=== PATIENT | male | born 1960 | race Caucasian/White ===

== ENCOUNTER 2025-03-21 13:41 | Emergency (ER) | payer OTHER ==
[~2025-03-21] VITALS: Ht 170.2 cm; Wt 90.7 kg
--- NOTE | 2025-03-21 13:46 | ERN ---
ED Note History of Present Illness Stated Complaint: CHRONIC BACK PAIN Chief Complaint: Back Pain-No Injury Time Seen by MD: 13:43 Dictation: PATIENT IS A 64-YEAR-OLD MALE COMING IN TODAY WITH LEFT LATERAL LUMBAR SACRAL PAIN HE HAS HAD OFF AND ON FOR THE LAST 4-5 DAYS. NO FEVER NO CHILLS NO CHANGE IN URINATION. HE STATES HE HAS A HISTORY QT OF CHRONIC BACK PAIN AND HAD A LUMBAR FUSION 7-8 YEARS AGO. HE HAS TAKEN NOTHING PRIOR TO ARRIVAL FOR PAIN. HE DENIES ANY TRAUMA. NO CHANGE IN BOWEL OR BLADDER FUNCTION NO SADDLE PA RESTHESIA NOT SEEN HIS PRIMARY CARE DOCTOR HAS A AN APPOINTMENT TOMORROW. Allergies: Coded Allergies: No Known Allergies (Unverified Allergy, Unknown, 03/21/25) Home Meds Active Scripts Cyclobenzaprine HCl (Flexeril) 10 Mg Tab, 1 TAB PO TID for muscle spasms for 10 Days, #30 TAB 0 Refills Prov:TIANNA LOPEZP 03/21/25 Ibuprofen (Ibuprofen 800 mg Tab) 800 Mg Tab, 800 MG PO Q8H PRN for fever or pain, #30 TAB 0 Refills Prov:TIANNA LOPEZ COUNT TEAM CLERK 03/21/25 Methylprednisolone (Medrol) 4 Mg Tab.ds.pk, 1 TAB PO AD for 6 Days, #21 TAB 0 Refills 6 on day 1 then reduce by one tablet daily until gone Prov:TIANNA LOPEZ COUNT TEAM CLERK 03/21/25 Past Medical History RN Note Reviewed/Agreed w/PFSH: Yes Review of System Dictation CONSTITUTIONAL: NEGATIVE EXCEPT FOR HPI HEAD/FACE: NEGATIVE EXCEPT FOR HPI EENT: NEGATIVE EXCEPT FOR HPI RESPIRATORY: NEGATIVE EXCEPT FOR HPI GASTROINTESTINAL/ABDOMINAL: NEGATIVE EXCEPT FOR HPI GENITOURINARY: NEGATIVE EXCEPT FOR HPI MUSCULOSKELETAL: NEGATIVE EXCEPT FOR HPI LEFT LUMBAR PAIN INTEGUMENTARY: NEGATIVE EXCEPT FOR HPI NEUROLOGICAL/PSYCH: NEGATIVE EXCEPT FOR HPI HEMATOLOGIC/LYMPHATIC: NEGATIVE EXCEPT FOR HPI ALL SYSTEMS NEGATIVE, EXCEPT NOTED ABOVE. 13 POINT REVIEW OF SYSTEMS ASSESSED AND ALL NEGATIVE EXCEPT FOR ABOVE. Initial Vital Sign VS Vital Signs Date Time Temp Pulse Resp B/P (MAP) Pulse Ox O2 Delivery O2 Flow Rate FiO2 03/21/25 13:43 98.1 86 16 156/80 98 Room Air 0 Physical Exam Dictation VITAL SIGNS REVIEWED GENERAL APPEARANCE: ALERT, ORIENTED X 3, MODERATE ACUTE DISTRESS, WELL DEVELOPED, NOURISHED. OBESE HEAD AND FACE: NON-TRAUMATIC. EYES: PERRL, PINK CONJUNCTIVAS, EYELID NO TRAUMA, ANTERIOR CHAMBER WITH ARCUS S ENILIS. EARS: PINNAS INTACT AND NO SIGNS OF TRAUMA OR ERYTHEMA EAR CANALS CLEAR AND NO DISCHARGE TM NO ERYTHEMA NOSE: NO DISCHARGE, NO BLEEDING. OROPHARYNX: MOUTH NORMAL, TONGUE PINK, PHARYNX CLEAR,NO ERYTHEMA, TONSILS NO EXUDATES, NO ABSCESSES NOTED, MUCOUS MEMBRANE MOIST NECK: SUPPLE, NON-TENDER, NO THYROMEGALY, NO MASSES, NO JVD, NO BRUITS BREAST:DEFERRED CHEST:NO TENDERNESS, NO CREPITUS, NO PARADOXICAL MOVEMENT, NO RETRACTIONS LUNGS:CLEAR, WELL-VENTILATED, SYMMETRIC, NO RALES, NO WHEEZING, NO RHONCHI, NO STRIDOR, GOOD BREATH SOUNDS BILATERALLY HEART: REGULAR RATE, REGULAR RHYTHM, NO MURMUR, NO GALLOPS VASCULAR: NO PERIPHERAL EDEMA, ABDOMEN: SOFT, POSITIVE BOWEL SOUNDS, NONDISTENDED, NO GUARDING, NONTENDER, NO REBOUND, NO MASSES NO HEPATOMEGALY, NO SPLENOMEGALY, NO THOPMSON'S SIGN, NO HERNIAS. RECTAL: DEFERRED GENITAL: DEFERRED NEUROLOGICAL: NORMAL SPEECH, MOTOR FUNCTION INTACT, SENSORY FUNCTION INTACT MUSCULOSKELETAL: NECK NONTENDER, FULL RANGE OF MOTION, DIFFUSE LEFT LUMBOSACRAL TENDERNESS WITH PALPATION. NO STEP-OFFS. NEGATIVE STRAIGHT LEG RAISE BILATERALLY 10 DEGREE EXTREMITIES: NONTENDER, FULL RANGE OF MOTION SKIN: COLOR PINK, DRY, NO TURGOR, NO RASH, NO LACERATIONS, NO ABRASIONS, NO CONTUSIONS. LYMPHATIC: DEFERRED Results (Laboratory/Radiology) Laboratory/Radiology : LUMB 2 3VW - LUMBAR SPINE 2-3VWS EXAM: CR Lumbar Spine, 3 View. CLINICAL HISTORY: CHRONIC LEFT LATERAL LUMBAR PAIN. HISTORY OF FUSION SEVEN YEARS AGO COMPARISON: None provided. FINDINGS: Posterior intermitted fusion of L3-L4 and L4-L5. Mild lumbar spondylosis evident by anterior osteophytes and syndesmophytes at multiple levels. Mild grade 1 posterior listhesis of L2 with respect to L3. Mild to moderate multilevel degenerative disc disease, more pronounced at L2-L3. Vertebral body heights are maintained, there is no displaced fracture appreciated. Prior cholecystectomy. IMPRESSION: 1. No acute findings. 2. Posterior intermitted fusion of L3-L4 and L4-L5. 3. Mild grade 1 posterior listhesis of L2 with respect to L3. /[facility] Reviewed?: Yes ED Course ED Course Orders Procedure Category Date Status Time Lumbar Spine 2-3vws RAD 03/21/25 Resulted 13:44 Cyclobenzaprine Hcl PHA 03/21/25 Complete (Cyclobenzaprine Hcl 14:00 Ibuprofen 800 Mg Tab PHA 03/21/25 Complete (Motrin) 14:00 Current Medications Medications (Trade) Dose Ordered Sig/Nevin Route PRN Reason Start Time Stop Time Status Last Admin Dose Admin Cyclobenzaprine HCl (Cyclobenzaprine HCl) 10 mg ONCE ONCE PO 03/21/25 14:00 03/21/25 14:01 DC Ibuprofen (moTRIN) 800 mg ONCE ONCE PO 03/21/25 14:00 03/21/25 14:01 DC Vital Signs Date Time Temp Pulse Resp B/P (MAP) Pulse Ox O2 Delivery O2 Flow Rate FiO2 03/21/25 13:43 98.1 86 16 156/80 98 Room Air 0 1632/PATIENT DISCHARGED HOME WITH PAIN DOWN TO 310. NO NEUROLOGIC CHANGES. DISCHARGED HOME WITH IBUPROFEN/FLEXERIL/MEDROL DOSEPAK TOLD SEE HIS PRIMARY CARE DOCTOR FOR CHRONIC BACK PAIN Medical Decision Making MDM MEDICAL DISCHARGE MAKING BASED ON EMPIRIC TREATMENT FOR CHRONIC BACK PAIN AND X- RAY OF LUMBAR SPINE FILM PATIENT HAS PRIOR FUSION NOTED WITH POSTERIOR LISTHESIS DISCHARGED HOME WITH MEDROL DOSEPAK/IBUPROFEN/FLEXERIL TOLD SEE HIS PRIMARY CARE DOCTOR FOR FOLLOW UP DX & DISP Disposition: Discharge Departure Impression: Primary Impression: Acute exacerbation of chronic low back pain Additional Impression: History of fusion of lumbar spine Condition: Stable Scripts Cyclobenzaprine HCl (Flexeril) 10 Mg Tab 1 TAB PO TID for muscle spasms for 10 Days, #30 TAB 0 Refills Prov: TIANNA LOPEZ COUNT TEAM CLERK 03/21/25 Ibuprofen (Ibuprofen 800 mg Tab) 800 Mg Tab 800 MG PO Q8H PRN for fever or pain, #30 TAB 0 Refills Prov: TIANNA LOPEZ COUNT TEAM CLERK 03/21/25 Methylprednisolone (Medrol) 4 Mg Tab.ds.pk 1 TAB PO AD for 6 Days, #21 TAB 0 Refills 6 on day 1 then reduce by one tablet daily until gone Prov: TIANNA LOPEZ COUNT TEAM CLERK 03/21/25 Additional Instructions: FOLLOW-UP WITH PRIMARY CARE PROVIDER IN 1 TO 2 DAYS. TAKE MEDICATIONS DIRECTED HERE IN THE EMERGENCY ROOM. OKAY TO CONTINUE HOME MEDICATIONS UNLESS OTHERWISE DISCUSSED DURING YOUR VISIT IN THE EMERGENCY ROOM TODAY. RETURN TO YOUR NEAREST EMERGENCY ROOM IF SYMPTOMS WORSEN OR IF THERE IS NO IMPROVEMENT. CALL 911 IF YOU NEED IMMEDIATE ASSISTANCE. TAKE TYLENOL OR MOTRIN [id number] NEEDED AND IF NO CONTRAINDICATIONS ARE PRESENT. INCREASE ORAL HYDRATION. A WOUND CULTURE OR URINE CULTURE WAS ORDERED HERE IN THE EMERGENCY ROOM DEPARTMENT PLEASE FOLLOW-UP WITH PRIMARY CARE PROVIDER AND ADVISE THEM TO GET REPEAT PORTS FROM OUR FACILITY. IF YOU HAD ANY TOMMY WRAP/SPLINTS THAT WERE APPLIED HERE, PLEASE DO NOT REMOVE THEM UNTIL YOU SEE YOUR PRIMARY CARE OR SPECIALTY. TAKE IBUPROFEN Time of Disposition: 16:35 I have reviewed the case, and I agree with, Diagnosis and Plan TIANNA LOPEZ COUNT TEAM CLERK Mar 21, 2025 13:46
[2025-03-21] MEDS: CYCLOBENZAPRINE HCL 10 MG TABLET PO ONE (14:00)
--- NOTE | 2025-03-21 14:56 | HMCIMG ---
EXAM: CR Lumbar Spine, 3 View. CLINICAL HISTORY: CHRONIC LEFT LATERAL LUMBAR PAIN. HISTORY OF FUSION SEVEN YEARS AGO COMPARISON: None provided. FINDINGS: Posterior intermitted fusion of L3-L4 and L4-L5. Mild lumbar spondylosis evident by anterior osteophytes and syndesmophytes at multiple levels. Mild grade 1 posterior listhesis of L2 with respect to L3. Mild to moderate multilevel degenerative disc disease, more pronounced at L2-L3. Vertebral body heights are maintained, there is no displaced fracture appreciated. Prior cholecystectomy. IMPRESSION: 1. No acute findings. 2. Posterior intermitted fusion of L3-L4 and L4-L5. 3. Mild grade 1 posterior listhesis of L2 with respect to L3. /[place]
[2025-03-21] MEDS ORDERED: CYCL10TA16 PO (16:37)
[2025-03-21] MEDS ORDERED: IBUP-2077 PO (16:37)
[2025-03-21] MEDS ORDERED: METH4TAB3 PO (16:37)
[2025-03-21 17:07] VITALS: BP 156/83; PULSE 81; RESP 18; TEMP 98.5; O2SAT 97
== END 2025-03-21 17:15 | disposition home or self-care (01) ==
LOC: EDH 13:41
DX: G89.29 Other chronic pain (principal); M54.50 Low back pain, unspecified; Z98.1 Arthrodesis status
CPT/HCPCS: 72100; 99283